=== PATIENT | female | born 1990 | race Caucasian/White ===

== ENCOUNTER 2016-10-02 03:18 | Emergency (ER) | payer OTHER ==
[2016-10-02 03:55] LABS: BASOPHILS # (AUTO) 0.1 10^3/uL (0.0-0.1); EOSINOPHILS # (AUTO) 0.2 10^3/uL (0.0-0.7); EOSINOPHILS % (AUTO) 1.6 %; HCT - HEMATOCRIT 38.2 % (37.0-47.0); HGB - HEMOGLOBIN 13.2 g/dL (12.0-16.0); LYMPHOCYTES # (AUTO) 2.6 10^3/uL (1.5-3.5); LYMPHOCYTES % (AUTO) 19.6 %; MEAN CORPUSCULAR HEMOGLOBIN 31.4 pg (27.0-31.0); MEAN CORPUSCULAR HGB CONC 34.6 g/dL (32.0-36.0); MEAN CORPUSCULAR VOLUME 90.7 fL (81.0-99.0); MEAN PLATELET VOLUME 9.1 fL (7.9-10.8); MONOCYTES # (AUTO) 0.7 10^3/uL (0.0-1.0); MONOCYTES % (AUTO) 5.3 %; NEUTROPHILS # (AUTO) 9.4 10^3/uL (1.5-6.6); NEUTROPHILS % (AUTO) 72.5 %; RED BLOOD COUNT 4.21 10^6/uL (4.20-5.40); RED CELL DISTRIBUTION WIDTH 12.9 % (12.0-15.0)
--- NOTE | 2016-10-02 03:55 | ED Physician Documentation ---
History of Present Illness - Stated complaint Stated Complaint: BACK PX - Chief complaint Chief Complaint: General - History obtained from History obtained from: Patient, Friend (boyfriend) - History of Present Illness Timing: How many hours ago (1) Pain level max: 8 Pain level now: 0 Improved by: ibuprofen, tylenol Worsened by: nothing - Additonal information Additional information: Patient is 26 year old female with L flank pain that awoke her from sleep. 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 States went hiking yesterday and did not drink much water. States prior to that, she was urinating frequently. Denies any chance of . No other medical problems. No history of kidney stones or similar pain. Review of Systems Ten Systems: 10 systems reviewed and negative Constitutional: denies: Fever, Chills Throat: denies: Sore throat Cardiac: denies: Chest pain / pressure Respiratory: denies: Cough GI: denies: Vomiting, Diarrhea, Hematemesis, Bloody / black stool : denies: Dysuria, Now EGA Skin: denies: Rash Musculoskeletal: denies: Neck pain Neurologic: denies: Headache PD PAST MEDICAL HISTORY - Past Medical History Past Medical History: No - Past Surgical History Past Surgical History: No - Present Medications Home Medications: Ambulatory Orders Medication Instructions Recorded Confirmed Cephalexin [Keflex] 500 mg PO Q6H #28 capsule 10/02/16 Ibuprofen [Motrin] 600 mg PO Q6H PRN #30 tab 10/02/16 Ondansetron Odt [Zofran] 4 mg TL Q6H PRN #10 tablet 10/02/16 - Allergies Allergies/Adverse Reactions: Allergies Allergy/AdvReac Type Severity Reaction Status Date / Time Opioids - Morphine Analogues Allergy Nausea Verified 10/02/16 03:25 - Social History Does the pt smoke?: No Smoking Status: Never smoker PD ED PE NORMAL - Vitals Vital signs reviewed: Yes - General General: Alert and oriented X 3, No acute distress, Well developed/nourished - HEENT HEENT: PERRL, Moist mucous membranes - Neck Neck: Supple, no meningeal sign - Cardiac Cardiac: RRR, Strong equal pulses - Respiratory Respiratory: No respiratory distress, Clear bilaterally - Abdomen Abdomen: Soft, Non tender, Non distended - Back Back: No CVA TTP, No spinal TTP - Derm Derm: Warm and dry, No rash - Extremities Extremities: No edema - Neuro Neuro: Alert and oriented X 3 - Psych Psych: Normal mood, Normal affect Results - Vitals Vitals: Vital Signs - 24 hr 10/02/16 10/02/16 03:22 04:50 Temperature 36.5 C Heart Rate 58 L 61 Respiratory 16 18 Rate Blood Pressure 105/70 108/72 O2 Saturation 98 98 Oxygen O2 Source Room air - Labs Labs: Laboratory Tests 10/02/16 10/02/16 10/02/16 03:40 03:40 04:05 WBC 13.0 H RBC 4.21 Hgb 13.2 Hct 38.2 MCV 90.7 MCH 31.4 H MCHC 34.6 RDW 12.9 Plt Count 192 MPV 9.1 Neut # 9.4 H Lymph # 2.6 [place] # 0.7 Eos # 0.2 Baso # 0.1 Absolute Nucleated RBC 0.00 Nucleated RBCs 0.0 Sodium 136 Potassium 3.6 Chloride 105 Carbon Dioxide 23 Anion Gap 8.0 BUN 15 Creatinine 0.6 Estimated GFR (MDRD) 120 Glucose 98 Calcium 8.9 Total Bilirubin 0.7 AST 20 ALT 13 Alkaline Phosphatase 41 L Total Protein 7.1 Albumin 4.2 Globulin 2.9 Albumin/Globulin Ratio 1.4 Lipase 26 Urine Color YELLOW Urine Clarity CLOUDY Urine pH 6.0 Ur Specific [place] 1.025 Urine Protein 100 H Urine Glucose (UA) NEGATIVE Urine Ketones NEGATIVE Urine Occult Blood LARGE H Urine Nitrite NEGATIVE Urine Bilirubin NEGATIVE Urine Urobilinogen 0.2 (NORMAL) Ur Leukocyte Esterase MODERATE H Urine RBC 11-25 H Urine WBC >25 H Urine WBC Clumps PRESENT Ur Squamous Epith Cells RARE Squamous Urine Bacteria None Seen Ur Microscopic Review INDICATED Urine Culture Comments INDICATED Urine HCG, Qual NEGATIVE - Rads (name of study) CT abd/pelvis Radiology: Prelim report reviewed, EMP read contemporaneously, See rad report ( normal) PD MEDICAL DECISION MAKING - ED course Complexity details: reviewed results, re-evaluated patient, considered differential, d/w patient ED course: Patient is a 26-year-old female who presents to the emergency department with sudden onset of left flank pain earlier tonight, this is since resolved. Possible passed kidney stone? Also appears to have a UTI. No fevers. No vomiting. No CVA tenderness. No clinical evidence of pyelonephritis. Given Rocephin IV and will place on Keflex for home. She is very well-appearing, nontoxic. Afebrile. Patient counseled regarding signs and symptoms for which I believe and urgent re-evaluation would be necessary. Patient with good understanding of and agreement to plan and is comfortable going home at this time This document was made in part using voice recognition software. While efforts are made to proofread this document, sound alike and grammatical errors may occur. Departure - Departure Disposition: Home, Self Care Clinical Impression: UTI (urinary tract infection) Qualifiers: Urinary tract infection type: acute cystitis Hematuria presence: with hematuria Qualified Code(s): N30.01 - Acute cystitis with hematuria Condition: Good Instructions: ED UTI Cystitis Female Follow-Up: your,doctor in 1 week [Other] Prescriptions: Cephalexin [Keflex] 500 mg PO Q6H #28 capsule Ibuprofen [Motrin] 600 mg PO Q6H PRN #30 tab PRN Reason: Pain Ondansetron Odt [Zofran] 4 mg TL Q6H PRN #10 tablet PRN Reason: Nausea / Vomiting Comments: Take all antibiotics until gone. Return if you worsen. Discharge Date/Time: 10/02/16 04:50
[2016-10-02 04:08] LABS: ALBUMIN/GLOBULIN RATIO 1.4 (1.0-2.2); BILIRUBIN,TOTAL 0.7 mg/dL (0.2-1.0); CALCIUM 8.9 mg/dL (8.5-10.3); CREATININE 0.6 mg/dL (0.4-1.0); POTASSIUM 3.6 mmol/L (3.5-5.0); TOTAL PROTEIN 7.1 g/dL (6.7-8.2)
[2016-10-02 04:14] LABS: BILIRUBIN,URINE NEGATIVE (NEGATIVE)
[2016-10-02 04:22] LABS: HCG UR QUAL NEGATIVE; UA w/ MICROSCOPIC CHARGE YES; UR CULTURE IF IND INDICATED; WBC,URINE >25 /HPF (0-5)
[2016-10-02] MEDS ORDERED: cefTRIAXone 1 GM VIAL IVP STA (04:26)
[2016-10-02] MEDS ORDERED: cefTRIAXone 1 GM VIAL ONE (04:31)
--- NOTE | 2016-10-02 04:35 | CT Preliminary Report ---
Exam: CT Abdomen/Pelvis W/O IMPRESSION: 1. No urinary tract stones or obstruction. 2. No bowel obstruction. No evidence of appendicitis. [facility] SITE ID: [id number]
--- NOTE | 2016-10-02 04:38 | CT Report ---
EXAM: CT ABDOMEN AND PELVIS (CT KUB) EXAM DATE: 10/02/2016 04:00 AM. CLINICAL HISTORY: Left flank pain COMPARISONS: None. TECHNIQUE: Routine axial helical CT imaging was performed through the abdomen and pelvis without IV c ontrast. Reconstructions: Coronal and sagittal. In accordance with CT protocol optimization, one or more of the following dose reduction techniques w ere utilized for this exam: automated exposure control, adjustment of mA and/or KV based on patient s ize, or use of iterative reconstructive technique. FINDINGS: Kidneys and ureters: No stones. No hydronephrosis or hydroureter. No definite renal mass within the c onfines of a non-contrast exam. Abdominal Solid Organs: Abdominal parenchymal organs are without significant abnormality within the c onfines of a noncontrast exam. Bowel: No evidence of bowel obstruction. Appendix: Normal caliber appendix. Inspissated fecal matter versus appendicoliths noted. Lymph Nodes: No definite pathologic lymphadenopathy. Fluid: No significant ascites. Vasculature: Normal caliber aorta. Pelvis: No bladder stones. Multiple left hemipelvis calcifications are present, suggesting phlebolith s. No suspicious adnexal abnormality. Bones: No definite suspicious bony lesions demonstrated. Lower Chest: No significant lung base consolidation or effusion. IMPRESSION: 1. No urinary tract stones or obstruction. 2. No bowel obstruction. No evidence of appendicitis. [facility] Referring Provider Line: [phone] SITE ID: [id number]
[2016-10-02 04:58] VITALS: BP 108/72
== END 2016-10-02 04:50 | disposition home or self-care (01) ==
LOC: ED 03:18
DX: N30.01 Acute cystitis with hematuria (principal)
CPT/HCPCS: 36415; 74176; 80053; 81001; 81003; 81025; 83690; 85025; 87086; 96374; 99283